=== PATIENT | male | born 1945 | race Asian ===

== ENCOUNTER 2019-05-07 20:09 | Inpatient (IN) | payer MEDICARE, SELFPAY ==
[2019-05-07 20:10] VITALS: BP 155/69; PULSE 85; RESP 18; TEMP 36.7; O2SAT 99; BMI 27.5
[2019-05-07 21:36] VITALS: BP 181/80; PULSE 85; RESP 18; O2SAT 100
[2019-05-07 22:06] LABS: Add Manual Diff / Slide Review NO; Basophils Absolute Auto 100 /uL (0-100); Basophils Percent Auto 0.7 % (0-2); Eosinophils Absolute Auto 200 /uL (0-450); Eosinophils Percent Auto 1.4 % (2-4); Hematocrit 38.7 % (41-53); Hemoglobin 12.9 g/dL (13.5-17.5); Lymphocytes Absolute Auto 2300 /uL (1100-4500); Lymphocytes Percent Auto 13.4 % (25-40); Mean Corpuscular HGB Conc 33.4 % (30-36); Mean Corpuscular Hemoglobin 31.5 PG (26-34); Mean Corpuscular Volume 94.4 fL (80-100); Monocytes Absolute Auto 1200 /uL (0-900); Monocytes Percent Auto 6.8 % (3-14); Neutrophils Absolute Auto 13200 /uL (1500-7000); Neutrophils Percent Auto 77.7 % (50-75); Platelet Count 239 X10^3/uL (150-400); Red Cell Distribution Width 14.5 % (11.6-14.8)
--- NOTE | 2019-05-07 22:12 | DI.RAD.S_ITS ---
PROCEDURE: XR ACUTE ABDOMEN SERIES INDICATIONS: Abdominal pain TECHNIQUE: One view chest and two views of the abdomen were acquired. COMPARISON: [facility], CT, CT ABDOMEN PELVIS W CON, 05/07/2019, 22:52. FINDINGS: Surgical changes and devices: None. Chest: Lungs are clear. Heart size is normal. No pleural effusions. No pneumoperitoneum. Abdomen: There are dilated fluid-filled loops of small bowel with scattered stool. No suspicious calcifications. Visualized solid organ contours appear normal. Bones: No suspicious bony lesions. IMPRESSION: Partial small bowel obstruction. Significant stool consistent with constipation. It is noted appendicitis was identified on the 05/07/19 CT exam. Please see CT report for further details. Dictated by: Mckayla Dorado M.D. on 05/08/2019 at 8:58 Approved by: Mckayla Dorado M.D. on 05/08/2019 at 9:01
[2019-05-07 22:13] LABS: INR 1.1 (0.9-1.3); Prothrombin Time 12.8 SECONDS (10.1-12.7)
[2019-05-07 22:16] LABS: PTT Partial Thromboplastin Tim 32 SECONDS (26.4-36.2)
[2019-05-07 22:17] LABS: Alanine Aminotransferase 25 IU/L (<50); Albumin 4.6 g/dL (3.5-5.0); Albumin Globulin Ratio 1.2 (1.0-2.8); Alkaline Phosphatase 54 U/L (38-126); Aspartate Aminotransferase 24 IU/L (17-59); BUN Creatinine Ratio 17.1 (6-22); Bilirubin Total 0.9 mg/dL (0.2-1.3); Blood Urea Nitrogen 29 mg/dL (9-20); Calcium 9.6 mg/dL (8.4-10.2); Carbon Dioxide 25 mmol/L (22-32); Chloride 99 mmol/L (98-107); Estimated Glomerular Filt Rate 39.8 mL/min (>60); Globulin 3.9 g/dL (1.7-4.1); Glucose 285 mg/dL (80-110); HEMOLYSIS < 15 (0-50); Lipase 120 U/L (23-300); Potassium 3.9 mmol/L (3.4-5.1); Sodium 134 mmol/L (137-145); Total Protein 8.5 g/dL (6.3-8.2)
[2019-05-07 22:28] LABS: Lactate (Lactic Acid) 1.2 mmol/L (0.7-2.1)
[2019-05-07] MEDS: SODIUM CHLORIDE 0.9% 1,000 ML 1000 ML IV (22:36)
[2019-05-07 22:37] VITALS: BP 214/100; PULSE 104; RESP 33; O2SAT 99
[2019-05-07] MEDS: HYDROMORPHONE 0.5 MG INJ IV (22:37)
[2019-05-07] MEDS: ONDANSETRON 4 MG/2 ML INJ IV (22:37)
--- NOTE | 2019-05-07 22:43 | DI.CT.S_ITS ---
PROCEDURE: CT ABDOMEN PELVIS W CON INDICATIONS: severe abdominal pain, peritoneal signs TECHNIQUE: After the administration of intravenous contrast, 5 mm thick sections acquired from the diaphragm to the symphysis. 5 mm coronal and sagittal reformats were acquired. For radiation dose reduction, the following was used: automated exposure control, adjustment of mA and/or kV according to patient size. COMPARISON: None. FINDINGS: Image quality: Excellent. ABDOMEN: Lung bases: Lung bases are clear. Heart size is normal. Small hiatal hernia. Solid organs: Liver is normal in size and enhancement. Gallbladder is normal. Biliary system is non dilated. Pancreas enhances normally. Spleen is normal in size and enhancement. No adrenal nodules. Kidneys demonstrate normal size and enhancement, without hydronephrosis. There is a 1.8 cm cyst in the lateral cortex of the right kidney. Peritoneum and bowel: Appendix is thickened and enlarged, measuring up to 14 mm in diameter. There is periappendiceal stranding. The findings are consistent with acute appendicitis. A 16 x 18 mm ring-enhancing fluid collection is seen adjacent to the tip of the appendix, suspicious for a small appendiceal abscess. There are small extraluminal air adjacent to the appendix, consistent with contained leak/perforation. Mild thickening of cecum, hepatic flexure, distal transverse colon, sigmoid colon and rectosigmoid junction. Bowel loops demonstrate normal caliber. Nodes and vessels: No retroperitoneal or mesenteric adenopathy by size criteria. Aorta and inferior vena cava are normal in size. Severe atherosclerosis. Miscellaneous: No ventral hernias. PELVIS: Genitourinary: Bladder wall thickness is normal. Miscellaneous: No inguinal hernias or adenopathy. Bones: No suspicious bony lesions. No vertebral body compression fractures. IMPRESSION: 1. Acute appendicitis. There is contained leak/perforation of appendix and a small appendiceal abscess. 2. Mild concentric thickening involving cecum, hepatic flexure, distal transverse colon, sigmoid colon and rectosigmoid junction. Recommend followup colonoscopy after adequate treatment of appendicitis. Dictated by: Alberto Hodgson M.D. on 05/08/2019 at 8:40 Approved by: Alberto Hodgson M.D. on 05/08/2019 at 8:53
--- NOTE | 2019-05-07 23:15 | ED.ABDPAIN ---
HPI - Abdominal Pain General Chief Complaint: Abdominal Pain Stated Complaint: stomach pains since yesterday,chills,fever, nausea Time Seen by Provider: 05/07/19 21:10 Source: patient Mode of arrival: Family Vehicle Limitations: no limitations History of Present Illness HPI narrative: 74-year-old male nonsmoker with history of hypertension, diabetes presents with his daughter and a chief complaint of severe, worsening abdominal pain over the past day or 2. He states that it hurts with any motion, walking and improves with rest. He has had nausea and a few episodes of vomiting. He denies any difficulty with bowel movements. He states he has to urinate but has had difficulty. He denies any history of the same. He denies any prior abdominal surgery. He last ate about 6 hours prior to his arrival but has decreased appetite. He has had fever and shaking chills MD complaint: abdominal pain Related Data Allergies Allergy/AdvReac Type Severity Reaction Status Date / Time No Known Drug Allergies Allergy Verified 05/07/19 20:58 Review of Systems Constitutional Constitutional: Reports chills, Denies fatigue, Reports fever(s), Denies frequent falls, Denies lethargy and Denies weakness Eyes Eyes: Denies change in vision, Denies eye discharge, Denies irritation and Denies loss of vision ENT Ears, Nose, Mouth, and Throat: Denies change in voice, Denies dizziness, Denies neck pain, Denies sore throat and Denies throat swelling Cardiovascular Cardiovascular: Denies chest pain, Denies irregular heart rhythm, Denies lightheadedness, Denies palpitations, Denies dyspnea, Denies dyspnea on exertion and Denies orthopnea Respiratory Respiratory: Denies cough, Denies dyspnea, Denies dyspnea on exertion and Denies wheezing Gastrointestinal Gastrointestinal: Reports abdominal pain, Denies change in bowel habits, Denies diarrhea, Reports nausea and Reports vomiting Genitourinary Genitourinary: Denies hematuria, Denies flank pain, Denies urinary incontinence and Denies urinary urgency Musculoskeletal Musculoskeletal: Denies back pain, Denies muscle weakness, Denies neck pain, Denies numbness and Denies tingling Integumentary/Breasts Skin/Breast: Denies pruritus, Denies erythema, Denies rash and Denies wounds Neurologic Neurologic: Denies behavioral changes, Denies confusion, Denies dizziness, Denies frequent falls, Denies loss of vision, Denies numbness, Denies tingling and Denies weakness Psychiatric Psychiatric: Denies anxiety, Denies behavioral changes, Denies confusion, Denies depression, Denies homicidal ideation and Denies suicidal ideation Endocrine Endocrine: Denies fatigue, Denies flushing and Denies palpitations Hematologic/Lymphatic Hematologic/Lymphatic: Denies easy bruising Allergic/Immunologic Allergic/Immunologic: Denies urticaria, Denies throat swelling and Denies wheezing Patient History Medical History Elevated cholesterol (Acute) Essential hypertension with goal blood pressure less than 130/85 (Acute) Type 2 diabetes mellitus (Acute) Social History Smoking Status: Never smoker Smoking Status: Never smoker alcohol intake frequency: a few times a month Substance Use Type: does not use Exam Narrative Exam Narrative: GENERAL: [74] year old patient appears stated age. Well-nourished, well-developed patient, in severe distress, rubbing his habit HEAD: Atraumatic. Normocephalic. EYES: Pupils equal round and reactive. Extraocular motions intact. No scleral icterus. No injection or drainage. ENT: Nose without bleeding, purulent drainage. Throat without erythema, tonsillar hypertrophy or exudate. Airway patent. NECK: Trachea midline. Non tender CARDIOVASCULAR: Regular rate and rhythm without murmurs, gallops, or rubs. RESPIRATORY: Clear to auscultation. Breath sounds equal bilaterally. No wheezes, rales, or rhonchi. GASTROINTESTINAL: Firm, distended abdomen consistent with generalized peritonitis, decreased bowel sounds EXTREMITIES: No edema or joint tenderness. BACK: Nontender without deformity or crepitance. No flank tenderness. NEURO: AOx3. SKIN: No rash or erythema of visible areas Initial Vital Signs Initial Vital Signs: Vital Signs Temperature 98.1 F 05/07/19 20:10 Pulse Rate 85 05/07/19 20:10 Respiratory Rate 18 05/07/19 20:10 Blood Pressure 155/69 H 05/07/19 20:10 Pulse Oximetry 99 05/07/19 20:10 Course Orders Ordered: ED Orders 05/07/19 21:38 EKG-12 Lead Stat 05/07/19 21:50 Complete Blood Count AUTO DIFF Stat Comprehensive Metabolic Panel Stat Lactate (Lactic Acid) Stat Lipase Stat Partial Thromboplastin Time Stat Prothrombin Time INR Stat 05/07/19 22:12 XR acute abdomen series Stat 05/07/19 22:43 CT abdomen pelvis w con Stat 05/07/19 22:50 Blood Culture Stat Lactated Ringer's (Lactated Ringers) 1,000 mls @ 42 mls/hr IV CONT ALLEY Discontinued Medications Hydromorphone HCl (Dilaudid) 0.5 mg IV NOW ONE Stop: 05/07/19 22:12 Last Admin: 05/07/19 22:37 Dose: 0.5 mg Documented by: SUSAN Sodium Chloride (Normal Saline 0.9%) 1,000 mls @ 1,000 mls/hr IV BOLUS ONE Stop: 05/07/19 23:10 Last Admin: 05/07/19 22:36 Dose: 1,000 mls/hr Documented by: SUSAN Piperacillin/Tazobactam/Dextrose (Zosyn) 3.375 gm in 50 mls @ 100 mls/hr IV NOW ONE Stop: 05/07/19 22:48 Last Infusion: 05/07/19 23:54 Dose: 0 mls/hr Documented by: Admin: 05/07/19 23:16 Dose: 100 mls/hr Documented by: ARPITA Famotidine (Pepcid) 20 mg in 50 mls @ 200 mls/hr IV NOW ONE Stop: 05/08/19 00:06 Last Admin: 05/07/19 23:57 Dose: 200 mls/hr Documented by: ARPITA Insulin Human Regular (Humulin R) 7 unit IV NOW ONE Stop: 05/08/19 00:21 Last Admin: 05/08/19 00:35 Dose: 7 unit Documented by: ARPITA Cosigned by: SJ Ondansetron HCl (Zofran) 4 mg IV NOW ONE Stop: 05/07/19 22:12 Last Admin: 05/07/19 22:37 Dose: 4 mg Documented by: SUSAN Consultations Consultation #1: call to general surgery after abdominal exam and xray, he is on his way in and requests CT, NPO, ABX Vital Signs Vital signs: Vital Signs - 8 hr 05/07/19 20:10 05/07/19 21:36 03/29/20 22:37 Temperature 98.1 F Pulse Rate 85 85 104 H Respiratory Rate 18 18 33 H Blood Pressure 155/69 H Blood Pressure [Left Arm] 181/80 H 214/100 H Pulse Oximetry 99 100 99 MDM - Abdominal Pain Lab Data Result diagrams: 05/07/19 21:50 05/07/19 21:50 Labs: Lab Results 05/07/19 05/07/19 05/07/19 Range/Units 21:50 21:50 21:50 WBC 17.0 H (4.5-11.0) X10^3/uL RBC 4.10 L (4.5-5.9) X10^6/uL Hgb 12.9 L (13.5-17.5) g/dL Hct 38.7 L (41-53) % MCV 94.4 (80-100) fL MCH 31.5 (26-34) PG MCHC 33.4 (30-36) % RDW 14.5 (11.6-14.8) % Plt Count 239 (150-400) X10^3/uL Neut % (Auto) 77.7 H (50-75) % Lymph % (Auto) 13.4 L (25-40) % [place] % (Auto) 6.8 (3-14) % Eos % (Auto) 1.4 L (2-4) % Baso % (Auto) 0.7 (0-2) % Neut # (Auto) 68354 H (4465-8880) /uL Lymph # (Auto) 2300 (1010-0364) /uL [place] # (Auto) 1200 H (0-900) /uL Eos # (Auto) 200 (0-450) /uL Baso # (Auto) 100 (0-100) /uL PT 12.8 H (10.1-12.7) SECONDS INR 1.1 (0.9-1.3) APTT 32 (26.4-36.2) SECONDS Sodium 134 L (137-145) mmol/L Potassium 3.9 (3.4-5.1) mmol/L Chloride 99 (98-107) mmol/L Carbon Dioxide 25 (22-32) mmol/L BUN 29 H (9-20) mg/dL Creatinine 1.70 H (0.66-1.25) mg/dL Estimated GFR 39.8 L (>60) mL/min BUN/Creatinine Ratio 17.1 (6-22) Glucose 285 H (80-110) mg/dL Lactate (0.7-2.1) mmol/L Calcium 9.6 (8.4-10.2) mg/dL Total Bilirubin 0.9 (0.2-1.3) mg/dL AST 24 (17-59) IU/L ALT 25 (<50) IU/L Alkaline Phosphatase 54 (38-126) U/L Total Protein 8.5 H (6.3-8.2) g/dL Albumin 4.6 (3.5-5.0) g/dL Globulin 3.9 (1.7-4.1) g/dL Albumin/Globulin Ratio 1.2 (1.0-2.8) Lipase 120 (23-300) U/L 05/07/19 Range/Units 21:50 WBC (4.5-11.0) X10^3/uL RBC (4.5-5.9) X10^6/uL Hgb (13.5-17.5) g/dL Hct (41-53) % MCV (80-100) fL MCH (26-34) PG MCHC (30-36) % RDW (11.6-14.8) % Plt Count (150-400) X10^3/uL Neut % (Auto) (50-75) % Lymph % (Auto) (25-40) % [place] % (Auto) (3-14) % Eos % (Auto) (2-4) % Baso % (Auto) (0-2) % Neut # (Auto) (0206-2075) /uL Lymph # (Auto) (6285-2929) /uL [place] # (Auto) (0-900) /uL Eos # (Auto) (0-450) /uL Baso # (Auto) (0-100) /uL PT (10.1-12.7) SECONDS INR (0.9-1.3) APTT (26.4-36.2) SECONDS Sodium (137-145) mmol/L Potassium (3.4-5.1) mmol/L Chloride (98-107) mmol/L Carbon Dioxide (22-32) mmol/L BUN (9-20) mg/dL Creatinine (0.66-1.25) mg/dL Estimated GFR (>60) mL/min BUN/Creatinine Ratio (6-22) Glucose (80-110) mg/dL Lactate 1.2 (0.7-2.1) mmol/L Calcium (8.4-10.2) mg/dL Total Bilirubin (0.2-1.3) mg/dL AST (17-59) IU/L ALT (<50) IU/L Alkaline Phosphatase (38-126) U/L Total Protein (6.3-8.2) g/dL Albumin (3.5-5.0) g/dL Globulin (1.7-4.1) g/dL Albumin/Globulin Ratio (1.0-2.8) Lipase (23-300) U/L Imaging Data Abdominal x-ray: Attestation: I personally reviewed and interpreted this imaging study as follows: My Impression: no free air, large bowel gas, no obstruction CT scan - abdomen/pelvis: Radiologist's Impression: Acute appendicitis with perforation and abscess Discharge Plan Departure Patient Disposition: Admitted As Inpatient Clinical Impression: Acute appendicitis Qualifiers: Acute appendicitis type: with generalized peritonitis Appendicitis gangrene presence: without gangrene Appendicitis perforation presence: with perforation Appendicitis abscess presence: with abscess Qualified Code(s): K35.21 - Acute appendicitis with generalized peritonitis, with abscess Admit Date/Time: 05/07/19 23:48 Admit Provider: Brody Robertson
[2019-05-07] MEDS: PIPERACILLIN-TAZO 3.375 GM/50 ML FROZ.PIGGY IV (23:16)
[2019-05-07] MEDS: FAMOTIDINE 20 MG/50 ML PIGGYBACK 200 MG IV (23:57)
[2019-05-08] VITALS (18 sets, daily range): BP systolic 111–154; BP diastolic 54–87; PULSE 69–90; RESP 12–20; TEMP 36.6–37.7; O2SAT 93–99; BMI 32.8
--- NOTE | 2019-05-08 | PATH_ITS ---
[facility] Accession Number: [id number] . 01 Material submitted: . appendix - APPENDIX . 01 Clinical history: . STOMACH PAINS SINCE YESTERDAY, CHILLS, FEVER, NAUSEA . 02 Diagnosis: Appendix, Appendectomy: Perforated acute appendicitis. No evidence of neoplasm. [facility] 05/10/2019 1156 Local . 02 Electronically signed: . Francisco Love MD, PhD, Pathologist NPI- [id number] . 01 Gross description: . Received in formalin, labeled appendix, is an apparently ruptured appendix (length-6.8 cm, diameter-1.0 cm), with moss, dull, exudate-covered serosa and attached mesoappendix (up to 1.2 cm in depth). The specimen is torn/possibly ruptured 2.2 cm from the tip. The lumen is void of content. The wall is up to 0.4 cm thick. No nodules, masses or lesions are identified. The resection margin is received open and is inked blue. Section code: (A1) resection margin en face and three additional food service sales representatives serial sections; (A2) one-half of the bivalved tip. ([id number]) /MRV 05/09/2019 1058 Local . 02 Pathologist provided ICD-10: K35.20 . 02 CPT . 691638 Performed at: 01 [facility] [address], [place], [place] [id number] MD Ho Langford MD Phone: [phone] Performed at: 02 [facility] [address] [place], [place] [id number] MD Giselle Wilson MD Phone: [phone]
--- NOTE | 2019-05-08 00:13 | P.HP_ITS ---
History of Present Illness History of Present Illness Date Patient Seen: 05/08/19 Time Patient Seen: 23:51 Chief complaint: stomach pains since yesterday,chills,fever, nausea Narrative: The patient is a gentleman appears to have about a 2 day history of abdominal pain. It may become an actually before that with general malaise after eating a fish meal. The pain began in his lower abdomen but has become diffuse and increases with movement. He has had vomiting. He has not been hungry and has not eaten for 6 hours. No prior history of pain like this. He has never had any abdominal operations. The patient is visiting from [place] and has not been able to return do the Covid issues going on. Patient History Medical History Elevated cholesterol (Acute) Essential hypertension with goal blood pressure less than 130/85 (Acute) Type 2 diabetes mellitus (Acute) Family & Social History Safety & Behavioral: Feels Safe in Current Yes Environment Been Physically Hurt or No Threatened By a Person Tobacco & Substance use: Smoking Status Never smoker alcohol intake frequency a few times a month Substance Use Type does not use Meds Home Medications and Allergies Allergies Allergy/AdvReac Type Severity Reaction Status Date / Time No Known Drug Allergies Allergy Verified 05/07/19 20:58 Review of Systems Review of Systems Narrative: Patient denies any heart problems. He has had chest pain for years and has been evaluated in a hospital a but told his heart is fine. He has no cough for asthma. No black or bloody bowel movements. No seizures or blackouts. No psychiatric illnesses. No unusual bruising or bleeding. No trouble swallowing no tooth aches. He is diabetic. No problems with this thyroid. Exam Vital Signs (past 8 hours): - 05/07/19 20:10 05/07/19 21:36 05/07/19 22:37 Temperature 98.1 F Pulse Rate 85 85 104 H Respiratory Rate 18 18 33 H Blood Pressure 155/69 H Blood Pressure [Left Arm] 181/80 H 214/100 H Pulse Oximetry 99 100 99 Oxygen Delivery Method Room Air Narrative Exam Narrative: Pleasant cooperative gentleman. Laying rather still. Eyes are nonicteric. Conjunctivae are pink. No nodes in the neck supraclavicular areas. Trachea is midline mobile. Thyroid was not enlarged. No masses in the neck or thyroid. He has a bruit in the right neck none in the left heart regular rate and rhythm without murmur gallop no heave lift or thrill his lungs are clear to auscultation equal percussion no rales or rhonchi abdomen is distended soft but with diffuse voluntary guarding. Point greatest tenderness appears to be the right lower quadrant. Alert. Appears to be oriented. Responses are appropriate. Objective Labs Result Diagrams: 05/07/19 21:50 05/07/19 21:50 Labs: Laboratory Results - last 24 hr 05/07/19 05/07/19 05/07/19 21:50 21:50 21:50 WBC 17.0 H RBC 4.10 L Hgb 12.9 L Hct 38.7 L MCV 94.4 MCH 31.5 MCHC 33.4 RDW 14.5 Plt Count 239 Neut % (Auto) 77.7 H Lymph % (Auto) 13.4 L [place] % (Auto) 6.8 Eos % (Auto) 1.4 L Baso % (Auto) 0.7 Neut # (Auto) 05181 H Lymph # (Auto) 2300 [place] # (Auto) 1200 H Eos # (Auto) 200 Baso # (Auto) 100 PT 12.8 H INR 1.1 APTT 32 Sodium 134 L Potassium 3.9 Chloride 99 Carbon Dioxide 25 BUN 29 H Creatinine 1.70 H Estimated GFR 39.8 L BUN/Creatinine Ratio 17.1 Glucose 285 H Lactate Calcium 9.6 Total Bilirubin 0.9 AST 24 ALT 25 Alkaline Phosphatase 54 Total Protein 8.5 H Albumin 4.6 Globulin 3.9 Albumin/Globulin Ratio 1.2 Lipase 120 05/07/19 21:50 WBC RBC Hgb Hct MCV MCH MCHC RDW Plt Count Neut % (Auto) Lymph % (Auto) [place] % (Auto) Eos % (Auto) Baso % (Auto) Neut # (Auto) Lymph # (Auto) [place] # (Auto) Eos # (Auto) Baso # (Auto) PT INR APTT Sodium Potassium Chloride Carbon Dioxide BUN Creatinine Estimated GFR BUN/Creatinine Ratio Glucose Lactate 1.2 Calcium Total Bilirubin AST ALT Alkaline Phosphatase Total Protein Albumin Globulin Albumin/Globulin Ratio Lipase Assessment & Plan Assessment & Plan narrative: Diabetic gentleman with a glucose of 285 was given IV insulin. Appears to have a perforated appendicitis on CT scanning. His colon is quite dilated across the mid abdomen. Patient has hypertension. Blood pressure seems to be rising. Will control with IV meds until we can place him back on his regular medication. Will proceed to the operating room because of his diffuse peritonitis and perforation I have discussed the operation with he and his daughter. Risks of bleeding, infection, injury to internal organs and the potential for an open procedure were all discussed. He appears to understand wishes to proceed
[2019-05-08 00:27] LABS: Bacteria Urine None Seen; RBC Urine None Seen (0-5/HPF); WBC Urine None Seen (0-5/HPF)
[2019-05-08] MEDS: INSULIN REGULAR 100 UNIT/ML 3 ML VIAL 7 UNIT IV (00:35)
[2019-05-08 00:39] LABS: Culture Indicated Urine Cult Not Indicated; Hyaline Casts Urine 0-1/LPF
--- NOTE | 2019-05-08 01:39 | SUR.OPER ---
Supine on padded OR bed, head on pillow, arms secured on padded arm boards at <90 degrees abduction, legs uncrossed, safety belt at thigh, tape over blanket over lower legs.
--- NOTE | 2019-05-08 02:02 | SUR.OPER ---
blood sugar measured 174 at 0155
[2019-05-08] MEDS: BUPIVACAINE 0.5% (PF) VIAL 30 ML INJ (02:03)
--- NOTE | 2019-05-08 02:31 | SUR.OPER ---
blood sugar reading of 165 at 0231
[2019-05-08] MEDS: LACTATED RINGERS 1,000 ML 42 ML IV ×2 (02:54)
--- NOTE | 2019-05-08 03:24 | PM.OP.1 ---
Operative Date/Time/Diagnoses Date of procedure: 05/08/19 Time of procedure: 03:10 Pre-op diagnosis: Perforated appendicitis with intraperitoneal abscess Post-op diagnosis: same Procedure & Clinicians Procedure: Laparoscopic appendectomy and drainage of intraperitoneal abscess Same procedure as scheduled: Yes Indications: Diffuse abdominal pain with guarding and peritoneal signs and a CT consistent with acute appendicitis with abscess Surgeon: Brody Robertson Click Yes if Unassisted: Yes Anesthesia Type: General Operative Notes Findings: Necrotic appendix between the distal and middle 3rd of the appendix. Abscess adjacent to it. Closure Type: primary Specimen(s): other (Appendix) Applied: drain(s) (7 mm Edvin-Marcos drain placed along the right gutter) Estimated Blood Loss (mL): 5 Blood products transfused: none Procedure in detail: The patient was placed supine on the operating room table and underwent general endotracheal anesthesia. Was prepped and draped in the usual fashion a Art catheter was inserted. Local anesthetic was infiltrated and a curvilinear incision made under the umbilicus and carried down under direct vision into the peritoneal cavity stay sutures of 0 Vicryl were placed in the fascia. A 12 mm port was inserted and 2 additional ports were placed. These were both 5 mm ports. One was placed between the umbilicus and the pubis and 1 in left lower quadrant. The appendix was identified lay along the right gutter adjacent to the colon. With blunt dissection I entered into the abscess and drained it. The appendix between the middle and distal 3rd was frankly necrotic. Attachments of the appendix to the is lateral abdominal wall and the mesentery were divided with a LigaSure device. The dissection was carried back to the base of the appendix which was carefully cleared. A loop of 0 PDS was placed around the base of the appendix and cinched down. The appendix was crushed distal to this and it was divided using the LigaSure device. It was immediately placed in a bag. The bag was removed without difficulty through the umbilical port. great care was taken to final all exiting gases through filter. The right gutter right upper quadrant and the pelvis were all irrigated and suctioned free of fluid. A drain was placed along the right gutter from the appendix down toward the pelvis. This was a Edvin-Marcos drain was brought out through the inferior most port site. It was secured with a 3 0 nylon. The ports were then all removed and the stay sutures at the umbilicus were tied after placing a 2 0 PDS suture between man. The wounds were irrigated and 4 0 Vicryl subcuticular stitches were used to close the skin along with Steri-Strips. Band-aids were applied and the patient was awakened, extubated taken through recovery area in good condition. There were no apparent complications. Patient received antibiotics preoperatively. These were therapeutic and not prophylactic and therefore these will be continued postoperatively. Complications: none Post-operative Condition: stable Disposition: PACU Plan for aftercare: Admit in patient
--- NOTE | 2019-05-08 03:31 | PM.PREOP ---
Pre-operative Note Interval Note History & Physical reviewed/Exam performed by Physician: Yes Changes to H&P: No H&P completed within 30 days and has changed as indicated here:: His history and physical performed prior to moving the patient into the operating room
--- NOTE | 2019-05-08 04:03 | SUR.PHASEI ---
Patient taken up to room in bed with belongings. Left in good condition with receiving RN.
[2019-05-08] MEDS: LACTATED RINGERS 1,000 ML 100 ML IV ×2 (04:07→15:35)
[2019-05-08] MEDS: PIPERACILLIN-TAZO 3.375 GM/50 ML FROZ.PIGGY IV ×4 (04:07→23:21)
[2019-05-08] MEDS: ENOXAPARIN 40 MG/0.4 ML SYRINGE SUBCUT (09:03)
[2019-05-08] MEDS: LOSARTAN 50 MG TABLET 100 MG PO (09:03)
[2019-05-08] MEDS: GABAPENTIN 300 MG CAPSULE PO ×2 (09:03→21:15)
[2019-05-08] MEDS: INSULIN ASPART 100 UNIT/ML INSULN PEN SUBCUT ×3 (09:04→17:18)
--- NOTE | 2019-05-08 09:17 | CM.DANOTE ---
Addendum entered by Angeles Carbone 05/08/19 09:32: Received return phone call from patient's daughter/Beatriz. She confirms that patient will be discharging to her residence when medically stable. RAHEEL Original Note: DCP/Assessment: Reviewed chart. Patient is a 74yr old male admitted to I.. with abdominal pain. Patient underwent lap appy for perforated appendicitis on 05-07-19. No PCP listed. Patient resides in [place]. Met with patient explained CM/SW role. Patient alert and oriented at time of visit. RN reports patient with limited Iranian capability. Therefore, patient provided CM team with permission to speak with his daughter/Beatriz. Left message. Patient reports that he is I in ADL's. P: Anticipate home when medically stable. LENCHO Ho Discharge Planning/Care Management CM Discharge Assessment Start: 05/08/19 09:08 Freq: Status: Active Protocol: Document 05/08/19 09:10 ALEX (Rec: 05/08/19 09:17 [facility] [id number]) Discharge Planning Assessment Assigned Label Cutter LENCHO Ho Contact Information Beatriz Newton (daughter) Advance Directives? No History Provided By Patient,Medical Record Has Patient been admitted in last 30 No days? Prior Living Arrangements House Household Members family Type of transporation used prior to Relies on Others admit Comment Patient visiting from [place]. Independent with ADL's Yes: reports Indepdendent Is patient alert and oriented? Yes Caregiver for Another No Comment Unsure, left vm with daughter requesitng additional information. Patient provided CM teamsite developer with permission . Barriers to Discharge No Transportation Arrangement Family Whiteboard Updated in Patient Room with Yes name and ext. # of Label Cutter Review Status In Process Next Review Type Continued Stay Review
--- NOTE | 2019-05-08 11:46 | PC.NURSE ---
Shift summary: Awake and alert, oriented X3 and able to answer most questions. Seems to understand more Yi than he is able to speak. When asked about pain he stated none, 0 on FLACC scale. 2 band-aids and KATHERINE site dressing C/D/I. KATHERINE patent to compression, 20 ml serosang. drainage when emptied earlier. Abd a bit distended. BT+, hypoactive. Denies flatus. Denies N/V, tolerating clear liquids. Got OOB, voided 300 ml per urinal, then ambulated [facility] loop pushing IV pole. Quite steady on his feet with SBA. IVF per orders, site in R AC WNL. Encouraged to make needs known. Call light and belongings within reach, bed alarm on.
--- NOTE | 2019-05-08 16:44 | PC.NURSE ---
Addendum entered by Negin Moseley R.N. 05/08/19 21:44: Pt resting at intervals, Denies discomfort. HS CBG = 179, given lantus as per orders, no S/S required. IS to 1500 IVF continue as per orders. Call light w/in reach, bed alarm on for pt safety. Continue w/plan of care. Original Note: Pt resting quietly @ this time. Denies discomfort. Lungs clear, SpO2 96% AR @ bandaid dsg on abdome CDI. KATHERINE patent serous drainage. IVF of LR @ 100cc/hr infusing in jonny the RAC via pump w/o incidence. Call light w/in reach, be alrm on for pt safety.
[2019-05-08] MEDS: ROSUVASTATIN 10 MG TABLET PO (21:15)
[2019-05-08] MEDS: INSULIN GLARGINE 100 UNIT/ML 3ML PEN 10 UNIT SUBCUT (21:31)
[2019-05-09] VITALS (12 sets, daily range): BP systolic 131–184; BP diastolic 59–91; PULSE 68–82; RESP 16–20; TEMP 36.5–37.1; O2SAT 96–99
[2019-05-09] MEDS: LACTATED RINGERS 1,000 ML 100 ML IV ×2 (02:29→14:05)
--- NOTE | 2019-05-09 03:04 | PC.NURSE ---
Patient is alert and oriented. Breath sounds CTA with RA sat of 99%. HRR. Denies nausea. BT hypoactive; patient denies flatus. Abdomen is soft and mildly distended. Voiding per urinal; denies dysuria, frequency or urgency. Able to move self in bed. Bandaid dressings to abdomen CDI; dressing over KATHERINE is also CDI. KATHERINE is compressed and intact with 5cc sero sanguinous drainage emptied. Continues to have dry, scaly skin on bilateral LE. Refusing to wear SCD's. Fall risk score is moderate; bed alarm is activated for safety.
[2019-05-09] MEDS: PIPERACILLIN-TAZO 3.375 GM/50 ML FROZ.PIGGY IV ×4 (04:13→21:54)
[2019-05-09 06:59] LABS: Add Manual Diff / Slide Review NO; Basophils Absolute Auto 100 /uL (0-100); Basophils Percent Auto 0.6 % (0-2); Eosinophils Absolute Auto 1000 /uL (0-450); Eosinophils Percent Auto 9.5 % (2-4); Hematocrit 32.8 % (41-53); Lymphocytes Absolute Auto 1800 /uL (1100-4500); Lymphocytes Percent Auto 17.2 % (25-40); Mean Corpuscular HGB Conc 33.6 % (30-36); Mean Corpuscular Volume 95.3 fL (80-100); Monocytes Absolute Auto 600 /uL (0-900); Monocytes Percent Auto 5.5 % (3-14); Neutrophils Absolute Auto 6900 /uL (1500-7000); Neutrophils Percent Auto 67.2 % (50-75); Platelet Count 185 X10^3/uL (150-400); Red Blood Cell Count 3.44 X10^6/uL (4.5-5.9); Red Cell Distribution Width 14.6 % (11.6-14.8); White Blood Cell Count 10.3 X10^3/uL (4.5-11.0)
[2019-05-09 07:07] LABS: BUN Creatinine Ratio 14.9 (6-22); Blood Urea Nitrogen 24 mg/dL (9-20); Calcium 8.3 mg/dL (8.4-10.2); Carbon Dioxide 27 mmol/L (22-32); Chloride 104 mmol/L (98-107); Estimated Glomerular Filt Rate 42.4 mL/min (>60); Glucose 118 mg/dL (80-110); HEMOLYSIS < 15 (0-50); Potassium 3.6 mmol/L (3.4-5.1); Sodium 136 mmol/L (137-145)
[2019-05-09 08:58] LABS: Enterococcus species Not Detected (Not Detect); Listeria monocytogenes Not Detected (Not Detect); Staphylococcus species Not Detected (Not Detect)
[2019-05-09 08:59] LABS: Acinetobacter baumannii Not Detected (Not Detect); Candida albicans Not Detected (Not Detect); Candida glabrata Not Detected (Not Detect); Candida krusei Not Detected (Not Detect); Candida parapsilosis Not Detected (Not Detect); Candida tropicalis Not Detected (Not Detect); E. coli Not Detected (Not Detect); Enterobacter cloacae complex Not Detected (Not Detect); Enterobacteriaceae species Not Detected (Not Detect); Haemophilus influenzae Not Detected (Not Detect); Neisseria meningitidis Not Detected (Not Detect); Proteus species Not Detected (Not Detect); Pseudomonas aeruginosa Not Detected (Not Detect); Serratia marcescens Not Detected (Not Detect); Streptococcus agalactiae (Gr B Not Detected (Not Detect); Streptococcus pneumonia Not Detected (Not Detect); Streptococcus pyogenes (Gr A) Not Detected (Not Detect); Streptococcus species Detected (Not Detect)
[2019-05-09] MEDS: ENOXAPARIN 40 MG/0.4 ML SYRINGE SUBCUT (09:04)
[2019-05-09] MEDS: LOSARTAN 50 MG TABLET 100 MG PO (09:04)
[2019-05-09] MEDS: GABAPENTIN 300 MG CAPSULE PO ×2 (09:04→21:14)
--- NOTE | 2019-05-09 12:12 | P.PN_ITS ---
Subjective Subjective Date Patient Seen: 05/09/19 Time Patient Seen: 11:31 Interval history: The patient is postop day 1. From a laparoscopic appendectomy. He denies any abdominal pain. He has not had a bowel movement. He thinks he did pass some gas last night. Exam Vital Signs (past 8 hours): - 05/09/19 06:37 05/09/19 08:00 05/09/19 09:13 Temperature 97.7 F 98 F Pulse Rate 78 72 Respiratory Rate 19 16 Blood Pressure 152/67 H 146/63 H Pulse Oximetry 98 98 97 05/09/19 12:00 Temperature 98.2 F Pulse Rate 68 Respiratory Rate 18 Blood Pressure 156/66 H Pulse Oximetry 99 Oxygen Delivery Method Room Air Oxygen Flow Rate 0 Narrative Exam Narrative: Patient's abdomen is quite distended but soft and nontender. Lungs decreased breath sounds in the bases. Not moving a lot of air. No wheezing. Heart regular rate and rhythm no murmur gallop. Objective Labs Result Diagrams: 05/09/19 06:43 05/09/19 06:43 Labs: Laboratory Results - last 24 hr 05/07/19 05/09/19 05/09/19 22:50 06:43 06:43 WBC 10.3 RBC 3.44 L Hgb 11.0 L Hct 32.8 L MCV 95.3 MCH 32.0 MCHC 33.6 RDW 14.6 Plt Count 185 Neut % (Auto) 67.2 Lymph % (Auto) 17.2 L [place] % (Auto) 5.5 Eos % (Auto) 9.5 H Baso % (Auto) 0.6 Neut # (Auto) 6900 Lymph # (Auto) 1800 [place] # (Auto) 600 Eos # (Auto) 1000 H Baso # (Auto) 100 Sodium 136 L Potassium 3.6 Chloride 104 Carbon Dioxide 27 BUN 24 H Creatinine 1.61 H Estimated GFR 42.4 L BUN/Creatinine Ratio 14.9 Glucose 118 H D Calcium 8.3 L A. baumannii (PCR) Not detected Jazzmine albicans (PCR) Not detected C. glabrata (PCR) Not detected C. krusei (PCR) Not detected C. parapsilosis (PCR) Not detected C. tropicalis (PCR) Not detected Enterobacteriac sp PCR Not detected E. cloacae complex PCR Not detected Enterococcus sp PCR Not detected E. coli (PCR) Not detected H. influenzae (PCR) Not detected Klebsiella oxytoca PCR Not detected Klebsiella pneumoniae Not detected List. monocytogenes PCR Not detected N. meningitidis (PCR) Not detected Proteus species (PCR) Not detected Serratia marcescens PCR Not detected Staphylococcus sp PCR Not detected Staph aureus (PCR) Not detected mecA-Methicil Res Gene Not Reportable Streptococcus sp PCR Detected H Group A Strep (PCR) Not detected Strep agalactiae (PCR) Not detected Strep pneumoniae (PCR) Not detected P. aeruginosa (PCR) Not detected Jerald/B-Vanco Res Genes Not Reportable KPC-Carbap Res Gene PCR Not Reportable Assessment & Plan Post-op Postoperative Procedures: Procedures Operation Date: 05/08/19 00:25 Actual Procedures Side Surgeon p Laparoscopic Appendectomy with drainage of interperitoneal abscess Brody Robertson MD Postoperative status narrative: Patient is had preoperatively drawn blood cultures turn positive which is consistent with bacteremia. He is on broad- spectrum antibiotics which should cover the organisms identified thus far. Still not had significant bowel function returned however. I am hesitant to advance his diet. His glucose has come down to normal this morning. White blood cell count is down to normal but he still has a preponderance of segs Postoperative plan narrative: Continue broad-spectrum IV antibiotics. Dulcolax suppository to stimulate bowel function. Continue glucose monitoring and treatment of hyperglycemia with sliding scale insulin. Not ready to advance diet due to distention.
[2019-05-09] MEDS: BISACODYL 10 MG SUPP PR (12:50)
[2019-05-09] MEDS: INSULIN ASPART 100 UNIT/ML INSULN PEN SUBCUT (12:50)
--- NOTE | 2019-05-09 17:32 | PC.NURSE ---
Addendum entered by Negin Moseley R.N. 05/09/19 21:34: Pt had relatively uneventful evening. IVF continue as per orders. . New IV site placed in the PHAM w/o incidence. Call light w/in reach, bed alarm on for pt safety. Continue w/plan of care. Original Note: Pt watching TV. Denies any discomfort at this time. Lungs CTA, SpO2 96% RA Bandaid dsg on abdomen, CDI. KATHERINE patent Assisted to BR. Pt had med BM after supository. Call light w/in reach, bed alarm on for pt safety.
[2019-05-09] MEDS: INSULIN GLARGINE 100 UNIT/ML 3ML PEN 10 UNIT SUBCUT (21:10)
[2019-05-09] MEDS: ROSUVASTATIN 10 MG TABLET PO (21:14)
[2019-05-10] VITALS (10 sets, daily range): BP systolic 157–198; BP diastolic 69–94; PULSE 67–76; RESP 16–20; TEMP 36.6–37.1; O2SAT 94–98
[2019-05-10] MEDS: LACTATED RINGERS 1,000 ML 100 ML IV ×3 (01:21→22:36)
[2019-05-10] MEDS: PIPERACILLIN-TAZO 3.375 GM/50 ML FROZ.PIGGY IV ×4 (03:45→21:03)
--- NOTE | 2019-05-10 04:18 | PC.NURSE ---
0305 Checked CBG only 77 given some apple juice 118 ml.
--- NOTE | 2019-05-10 08:29 | CM.DPC ---
DCP Cont: Per MD, pt making progress but now creatinine levels up that indicate renal issues and will further test and pt not medically stable to d/c home. Per RN, pt still having urine output and no further concerns at this time. Plan: SW to continue to follow to confirm pt will remain safe for return home with supportive spouse. LENCHO Linares
[2019-05-10] MEDS: GABAPENTIN 300 MG CAPSULE PO ×2 (08:51→21:03)
[2019-05-10] MEDS: ENOXAPARIN 40 MG/0.4 ML SYRINGE SUBCUT (08:51)
[2019-05-10] MEDS: LOSARTAN 50 MG TABLET 100 MG PO (08:51)
[2019-05-10] MEDS: INSULIN ASPART 100 UNIT/ML INSULN PEN SUBCUT ×3 (12:08→21:03)
--- NOTE | 2019-05-10 12:22 | PM.PNPO.1 ---
Subjective Subjective Date Patient Seen: 05/10/19 Time Patient Seen: 11:00 Interval history: Patient is not having any pain. Passing flatus and had a bowel movement. Exam Vital Signs (past 8 hours): - 05/10/19 08:00 Temperature 98.2 F Pulse Rate 70 Respiratory Rate 16 Blood Pressure 169/69 H Pulse Oximetry 98 Oxygen Delivery Method Room Air Oxygen Flow Rate 0 Narrative Exam Narrative: Patient's abdomen is distended but much less so than yesterday. His respiratory effort is slightly improved but he still has decreased breath sounds in the bases. Heart regular rate and rhythm. No obvious her murmur is heard at this time. Drainage is serous. Objective Labs Result Diagrams: 05/09/19 06:43 05/09/19 06:43 Assessment & Plan Post-op Postoperative Procedures: Procedures Operation Date: 05/08/19 00:25 Actual Procedures Side Surgeon p Laparoscopic Appendectomy with drainage of interperitoneal abscess Brody Robertson MD Postoperative status: doing well Postoperative plan narrative: Advance diet given his bowel movement. His renal failure with a creatinine of 1.6 is stable. This makes me suspect that this is a chronic condition of his. Will check labs in the morning. Probably remove his drain tomorrow. Consider discharge tomorrow or the next day depending on how he is doing.
[2019-05-10] MEDS: OXYCODONE/ACETAMINOPHEN 5/325 TABLET 2 TAB PO ×2 (16:19→17:26)
--- NOTE | 2019-05-10 19:10 | PC.NURSE ---
Addendum entered by Mariana Raines R.N. 05/10/19 23:34: Now resting quietly in bed with eyes closed. No signs of distress or discomfort. Original Note: Pt awake and alert in bed @ beginning of shift. States is able to understand [place]. Pt denies pain to surgical site to abdomen when asked multiple times, but is lying rigid and wide awake in bed with elevated BP. PRODUCT CRAFTSMAN speaks with pt and pt agrees to accept pain med as emar shows pt has not previously been medicated for pain. Single percocet given and repeated dose as per pt request as per emar. Able to move self out of bed with ease to toilet. Loose brown stool with void. To sink to wash and then ambulates with standby assistance only back to bed. BL scd's in place.
[2019-05-10] MEDS: INSULIN GLARGINE 100 UNIT/ML 3ML PEN 10 UNIT SUBCUT (21:03)
[2019-05-10] MEDS: ROSUVASTATIN 10 MG TABLET PO (21:03)
[2019-05-11] VITALS (11 sets, daily range): BP systolic 148–191; BP diastolic 73–95; PULSE 65–75; RESP 16–18; TEMP 36.7–37.3; O2SAT 91–98
[2019-05-11] MEDS: PIPERACILLIN-TAZO 3.375 GM/50 ML FROZ.PIGGY IV ×2 (03:53→10:50)
[2019-05-11 06:02] LABS: Add Manual Diff / Slide Review NO; Basophils Absolute Auto 100 /uL (0-100); Basophils Percent Auto 0.9 % (0-2); Eosinophils Absolute Auto 1700 /uL (0-450); Eosinophils Percent Auto 21.7 % (2-4); Hemoglobin 11.3 g/dL (13.5-17.5); Lymphocytes Absolute Auto 1600 /uL (1100-4500); Lymphocytes Percent Auto 20.7 % (25-40); Mean Corpuscular HGB Conc 33.2 % (30-36); Mean Corpuscular Hemoglobin 31.5 PG (26-34); Mean Corpuscular Volume 94.8 fL (80-100); Monocytes Absolute Auto 700 /uL (0-900); Monocytes Percent Auto 8.8 % (3-14); Neutrophils Absolute Auto 3800 /uL (1500-7000); Neutrophils Percent Auto 47.9 % (50-75); Platelet Count 223 X10^3/uL (150-400); Red Blood Cell Count 3.59 X10^6/uL (4.5-5.9); Red Cell Distribution Width 14.1 % (11.6-14.8); White Blood Cell Count 7.9 X10^3/uL (4.5-11.0)
[2019-05-11 06:41] LABS: Procalcitonin 1.56 ng/mL (<0.5)
[2019-05-11] MEDS: GABAPENTIN 300 MG CAPSULE PO ×2 (10:07→20:37)
[2019-05-11] MEDS: ENOXAPARIN 40 MG/0.4 ML SYRINGE SUBCUT (10:07)
[2019-05-11] MEDS: LOSARTAN 50 MG TABLET 100 MG PO (10:08)
--- NOTE | 2019-05-11 13:08 | P.PN_ITS ---
Subjective Subjective Date Patient Seen: 05/11/19 Time Patient Seen: 13:08 Interval history: Patient feeling well. No pain. Tolerating p.o. well. Exam Vital Signs (past 8 hours): - 05/11/19 08:00 05/11/19 12:00 Temperature 99.2 F Pulse Rate 67 Respiratory Rate 17 Blood Pressure 177/83 H Pulse Oximetry 98 97 Oxygen Delivery Method Room Air Oxygen Flow Rate 0 Narrative Exam Narrative: Lungs much better effort. Good breath sounds in the bases today. Abdomen less distended and soft. Heart regular rate and rhythm without murmur. Objective Labs Result Diagrams: 05/11/19 05:25 05/09/19 06:43 Labs: Laboratory Results - last 24 hr 05/11/19 05/11/19 05:25 05:25 WBC 7.9 RBC 3.59 L Hgb 11.3 L Hct 34.0 L MCV 94.8 MCH 31.5 MCHC 33.2 RDW 14.1 Plt Count 223 Neut % (Auto) 47.9 L Lymph % (Auto) 20.7 L [place] % (Auto) 8.8 Eos % (Auto) 21.7 H Baso % (Auto) 0.9 Neut # (Auto) 3800 Lymph # (Auto) 1600 [place] # (Auto) 700 Eos # (Auto) 1700 H Baso # (Auto) 100 Procalcitonin 1.56 H Assessment & Plan Post-op Postoperative Procedures: Procedures Operation Date: 05/08/19 00:25 Actual Procedures Side Surgeon p Laparoscopic Appendectomy with drainage of interperitoneal abscess Brody Robertson MD Postoperative status narrative: Doing well. Drain can come out. Postoperative plan narrative: DC drain. Switch to p.o. antibiotics. Grew strep sensitive to Levaquin. This should cover g negatives well but in case that is an anaerobe will start on p.o. Flagyl as well. Probable discharge in the morning.
--- NOTE | 2019-05-11 14:16 | PC.NURSE ---
KATHERINE drain d/c'd to lower abdm per physician order at approx. 1345 Pt tollerated well. Pt saline locked.
[2019-05-11] MEDS: levoFLOXacin 500 MG TABLET PO (16:35)
[2019-05-11] MEDS: metroNIDAZOLE 500 MG TABLET PO ×2 (16:35→20:37)
[2019-05-11] MEDS: INSULIN ASPART 100 UNIT/ML INSULN PEN SUBCUT (16:35)
[2019-05-11] MEDS: ROSUVASTATIN 10 MG TABLET PO (20:37)
[2019-05-11] MEDS: INSULIN GLARGINE 100 UNIT/ML 3ML PEN 10 UNIT SUBCUT (20:38)
[2019-05-12] VITALS (8 sets, daily range): BP systolic 154–176; BP diastolic 77–89; PULSE 67–75; RESP 16; TEMP 36.3–36.4; O2SAT 98–100
[2019-05-12] MEDS: ACETAMINOPHEN 325 MG TABLET 650 MG PO (05:16)
[2019-05-12] MEDS: ENOXAPARIN 40 MG/0.4 ML SYRINGE SUBCUT (08:10)
[2019-05-12] MEDS: GABAPENTIN 300 MG CAPSULE PO (08:11)
[2019-05-12] MEDS: metroNIDAZOLE 500 MG TABLET PO (08:11)
[2019-05-12] MEDS: LOSARTAN 50 MG TABLET 100 MG PO (08:11)
--- NOTE | 2019-05-12 09:16 | PM.DS.1 ---
History of Present Illness History of Present Illness Chief complaint: stomach pains since yesterday,chills,fever, nausea Narrative: The patient is a gentleman appears to have about a 2 day history of abdominal pain. It may become an actually before that with general malaise after eating a fish meal. The pain began in his lower abdomen but has become diffuse and increases with movement. He has had vomiting. He has not been hungry and has not eaten for 6 hours. No prior history of pain like this. He has never had any abdominal operations. The patient is visiting from [place] and has not been able to return do the Covid issues going on. Discharge Providers Provider Date of admission: 05/07/19 23:48 Discharge Date: 05/12/19 Consults: 05/08/19 03:47 Consult to Discharge Planning Routine Comment: Discharge provider: Brody Robertson MD Summary Hospital Course Discharge Diagnosis: Acute appendicitis with perforation, generalized peritonitis, and abscess Type 2 diabetes mellitus chronic Essential hypertension chronic Bacteremia based on blood cultures (strep species and Bacteroides fragilis) Hospital Course: The patient underwent an emergent laparoscopic appendectomy. A drain was placed. He had gradual return of his bowel function. He was treated with Zosyn during his hospitalization. He was switched to p.o. Flagyl and Levaquin prior to discharge. He was advanced to a general diet and by the time of discharge. He is discharged to follow up in the office. Status at Discharge Cognitive/behavioral status at discharge: at baseline, oriented Functional status at discharge: independent ambulation Exam Vital Signs (past 8 hours): - 05/12/19 01:51 05/12/19 02:40 05/12/19 05:05 Temperature 97.5 F L 97.3 F L Pulse Rate 75 67 Respiratory Rate 16 16 Blood Pressure 160/80 H 154/79 H Pulse Oximetry 98 98 98 05/12/19 08:11 Temperature Pulse Rate 74 Respiratory Rate Blood Pressure 161/89 H Pulse Oximetry Oxygen Delivery Method Room Air Oxygen Flow Rate 0 Narrative Exam Narrative: Lungs are clear to auscultation. No rales or rhonchi. Good effort. Heart regular rate and rhythm without murmur gallop. Abdomen is soft mildly distended nontender. Wounds all look fine. No cellulitis. Drain was removed yesterday. Objective Labs Result Diagrams: 05/11/19 05:25 05/09/19 06:43 Discharge Plan Discharge Plan Patient Disposition: Home Discharge orders & Medications Prescriptions: New levofloxacin [Levaquin] 500 mg tablet 500 mg PO DAILY Qty: 5 RF: 0 metronidazole [Flagyl] 500 mg tablet 500 mg PO TID Qty: 14 RF: 0 Continued calcium carbonate-vitamin D3 500 mg(1,250mg) -200 unit Tablet 1 tab PO DAILY RF: 0 insulin glargine 100 unit/mL Solution 10 unit SUBCUT BEDTIME RF: 0 linagliptin 5 mg Tablet 5 mg PO DAILY RF: 0 losartan 100 mg Tablet 50 mg PO BID RF: 0 rosuvastatin [Crestor] 10 mg Tablet 10 mg PO DAILY RF: 0 Follow up/Referrals: Brody Robertson MD [Physician] - (We will call you with an appointment. If you have not heard from us by Wednesday please call our office to make an appointment to be seen Wednesday or . If you need to reach a doctor call our office. If the office is closed listen to the entire message and at the end you will be connected with the page tape keller operator.) Diet/Activity/Treatments Diet: Diet as Tolerated Activity: Do not lift over 10 lb or strain for the next 4 weeks. You may walk. Skin/Wound/Dressing Care Report to your healthcare provider any signs of infection, such as:: chills, fever, night sweats, increased pain, unusual drainage and unusual redness Dressing: You may remove the Band-Aids and shower.
--- NOTE | 2019-05-12 13:41 | PC.NURSE ---
Discharge note: Patient discharged home with daughter Beatriz via private vehicle. Discharge instructions given to both daughter and patient, discussed importance of PO antibiotic therapy adherence, MD follow up, home activity and restrictions. Both verbalized understanding of instructions.
== END 2019-05-12 13:41 | disposition home or self-care (01) | DRG 339 ==
LOC: ED 23:51 → AC 05-08 00:07
PROVIDERS: Admitting Provider Specialist; Emergency Provider Emergency Medicine; Visit Provider Specialist
PROC: 0DTJ4ZZ Resection of Appendix, Percutaneous Endoscopic Approach (ICD-10-PCS; CPT 44970; principal; 2019-05-08 00:25)
DX: K35.21 Acute appendicitis with generalized peritonitis, with abscess (principal); R78.81 Bacteremia; I10 Essential (primary) hypertension; B95.5 Unspecified streptococcus as the cause of diseases classified elsewhere; B96.6 Bacteroides fragilis [B. fragilis] as the cause of diseases classified elsewhere; E11.9 Type 2 diabetes mellitus without complications; R79.89 Other specified abnormal findings of blood chemistry; E78.5 Hyperlipidemia, unspecified; Z79.4 Long term (current) use of insulin
CPT/HCPCS: 36415; 44970; 74022; 74177; 80048; 80053; 81003; 81015; 82962; 83605; 83690; 84145; 85025; 85610; 85730; 87040; 87077; 87150; 87186; 87205; 96365; 96367; 96375; 99222; 99285; J0330; J1170; J1650; J1885; J2405; J2543; J2704; J3010; Q9967